=== PATIENT | female | born 1980 | race Caucasian/White ===

== ENCOUNTER → 2023-07-18 15:34 | Outpatient (REF) | payer OTHER, SELFPAY | LOC: HWRAD 15:34 | PROVIDERS: ATTENDING PHYSICIAN Nurse Practitioner | DX: J06.9 Acute upper respiratory infection, unspecified (principal) | CPT/HCPCS: 71046 ==

== ENCOUNTER 2024-04-11 06:27 | Day surgery (SDC) | payer OTHER, SELFPAY | END 2024-04-11 15:58 | disposition home or self-care (01) | LOC: GI 06:27 | PROVIDERS: ATTENDING PHYSICIAN Internal Medicine; FAMILY PHYSICIAN Internal Medicine | DX: R10.84 Generalized abdominal pain (principal); R19.7 Diarrhea, unspecified; K63.5 Polyp of colon; K64.4 Residual hemorrhoidal skin tags | CPT/HCPCS: 45380; 88305 ==

== ENCOUNTER → 2024-06-27 13:06 | Outpatient (REF) | payer OTHER, SELFPAY | LOC: RAD 13:06 | PROVIDERS: ATTENDING PHYSICIAN Internal Medicine; FAMILY PHYSICIAN Internal Medicine | DX: K50.90 Crohn's disease, unspecified, without complications (principal) | CPT/HCPCS: 74177; Q9967 ==

== ENCOUNTER → 2024-07-09 15:07 | Outpatient (REF) | payer OTHER, SELFPAY | LOC: WDC 15:07 | PROVIDERS: ATTENDING PHYSICIAN Advanced Practice Midwife; FAMILY PHYSICIAN Internal Medicine | DX: Z12.31 Encounter for screening mammogram for malignant neoplasm of breast (principal) | CPT/HCPCS: 77063; 77067 ==